=== PATIENT | female | born 1935 | race Caucasian/White ===

== ENCOUNTER 2022-03-01 10:35 | Emergency (ER) | payer MEDICARE, BC ==
[~2022-03-01] VITALS: Ht 172.7 cm; Wt 52.3 kg
[~2022-03-01 10:35] MED LIST: CALCIUM600 MG OR; CIPRO500 MG PO; COLCRYS0.6 MG PO; DITROPAN5 MG OR; FISH OIL1000 MG OR; INDOMETHACIN50 MG PO; MULTI VIT; MULTI VIT OR; VALTREX1 GM PO; ZOSTAVAX IM
[2022-03-01] MEDS ORDERED: ATENOLOL25 MG PO (11:15)
[2022-03-01 13:09] VITALS: BP 122/68
== END 2022-03-01 13:22 | disposition home or self-care (01) ==
LOC: ED 10:35
DX: S93.601A Unspecified sprain of right foot, initial encounter (principal); X50.0XXA Overexertion from strenuous movement or load, initial encounter; Y92.009 Unspecified place in unspecified non-institutional (private) residence as the place of occurrence of the external cause